=== PATIENT | female | born 1980 | race Caucasian/White ===

== ENCOUNTER 2019-06-15 05:30 | Outpatient (CLI) | payer BC, OTHER ==
[~2019-06-15] VITALS: Ht 160 cm; Wt 55.0 kg
[~2019-06-15 05:30] MED LIST: FIBER TABLET PO; HERB PO; OMG1KC PO; SALM1CAP4 PO
[2019-06-15] MEDS ORDERED: MULT-884 PO (10:00)
== END 2019-06-15 10:03 | disposition home or self-care (01) ==
LOC: PREOP 05:30
PROVIDERS: ATTEND Obstetrics & Gynecology
DX: Z01.818 Encounter for other preprocedural examination (principal)